=== PATIENT | male | born 1995 | race Asian ===

== ENCOUNTER 2022-01-02 10:20 | Emergency (ER) | payer OTHER, SELFPAY ==
[2022-01-02] VITALS (14 sets, daily range): BP systolic 100–146; BP diastolic 59–85; PULSE 58–84; RESP 15–26; TEMP 36.9; O2SAT 95–100; BMI 24.0
--- NOTE | 2022-01-02 10:30 | DI.RAD.S_ITS ---
PROCEDURE: XR CHEST 1V INDICATIONS: chest pain TECHNIQUE: One view of the chest was acquired. COMPARISON: None. FINDINGS: Surgical changes and devices: None. Lungs and pleura: Lungs are clear. No pleural effusions or pneumothorax. Mediastinum: Mediastinal contours appear normal. Heart size is normal. Bones and chest wall: No suspicious bony lesions. Overlying soft tissues appear unremarkable. IMPRESSION: No acute cardiopulmonary findings. Dictated by: Mariam Joseph M.D. on 01/02/2022 at 11:05 Approved by: Mariam Joseph M.D. on 01/02/2022 at 11:05
--- NOTE | 2022-01-02 11:28 | ED.SYNCOPE ---
HPI - Syncope General Chief Complaint: Syncope Stated Complaint: Syncope- sent by otto [facility] Time Seen by Provider: 01/02/22 10:33 Source: patient Mode of arrival: Ambulatory Limitations: no limitations History of Present Illness HPI narrative: Patient is a 26-year-old healthy male who presents if after syncopal episode. This is actually his 2nd syncopal episode the 1st 1 was December 06. He does not remember exactly what happened that time but this morning he was getting ready for work brushing his teeth when to put on his boots when he felt really lightheaded. Stood up and steady himself on the bed. And passed out. No chest pain or palpitations. Although he is complaining of some chest heaviness he says it has been there for a long time. He is able to run without any difficulty. Does not know any significant shortness of breath with exertion. He has not had any fever chills or cough. He went to the walk-in clinic. EKG there face thought was concerning for possible Brugada syndrome type 2 and at here for further evaluation. Related Data Allergies Allergy/AdvReac Type Severity Reaction Status Date / Time No Known Drug Allergies Allergy Verified 01/02/22 10:30 Review of Systems Review of Systems Narrative: GENERAL: Denies chills, fatigue, malaise, fever, sweats, travel HEENT: Denies sinus pain, ear pain, sore throat, difficulty swallowing, neck pain RESPIRATORY: Denies dyspnea, cough, wheezing, hemoptysis, sputum. CARDIOVASCULAR: See HPI GASTROINTESTINAL: Denies nausea, vomiting, abdominal pain, diarrhea, constipation, melena. : Denies dysuria, frequency, incontinence, hematuria, urinary retention, flank pain. MUSCULOSKELETAL: Denies weakness, joint pain, or bony pain SKIN: No rash, no erythema, no pruritus NEUROLOGIC: + syncope, see HPI PSYCHIATRIC: No concerning psychosocial issues. 12 point review of systems is negative except for those stated above and HPI Patient History Social History Smoking Status: Unknown if ever smoked Smoking Status: Unknown if ever smoked alcohol intake frequency: holidays/special occasions only Substance Use Type: does not use Exam Initial Vital Signs Initial Vital Signs: Vital Signs Temperature 98.5 F 01/02/22 10:25 Pulse Rate 75 01/02/22 10:25 Respiratory Rate 17 01/02/22 10:25 Blood Pressure 143/85 H 01/02/22 10:25 Pulse Oximetry 99 01/02/22 10:25 GENERAL: Alert well-appearing 26-year-old male and in no acute distress. HEENT: Head atraumatic,EOMI, pupils reactive, face symmetric, moist mucous membranes CARDIOVASCULAR: Regular rate and rhythm without murmurs, rubs or gallops. RESPIRATORY: Breath sounds equal bilaterally, no wheezes rales or rhonchi. ABDOMEN: Soft, nontender. Normoactive bowel sounds all 4 quadrants. No guarding or rebound. EXTREMITIES: Normal range of motion, no clubbing or edema. Neurovascularly intact NEUROLOGICAL: Alert and oriented x4.Normal gait and speech. SKIN: Warm, dry, no laceration, no petechiae, no rashes or lesions. Course Orders Ordered: ED Orders 01/02/22 10:30 XR chest 1V Stat EKG-12 Lead Stat 01/02/22 11:17 BNP [NT-proBNP (BNP-Adult 18+)] Stat Complete Blood Count AUTO DIFF Stat Comprehensive Metabolic Panel Stat D Dimer Stat Lipase Stat Magnesium Stat Partial Thromboplastin Time Stat Prothrombin Time INR Stat Troponin & CK Cardiac Panel Stat Discontinued Medications Sodium Chloride (Normal Saline 0.9%) 1,000 mls @ 1,000 mls/hr IV BOLUS ONE Stop: 01/02/22 13:04 Last Infusion: 01/02/22 14:09 Dose: 0 mls/hr Documented by: Admin: 01/02/22 12:30 Dose: 1,000 mls/hr Documented by: SANDIP Vital Signs Vital signs: Vital Signs - 8 hr 01/02/22 10:25 01/02/22 10:26 01/02/22 10:28 Temperature 98.5 F Pulse Rate 75 84 75 Pulse Rate [Orthostatic Lying] Pulse Rate [Orthostatic Sitting] Pulse Rate [Orthostatic Standing] Respiratory Rate 17 26 H Blood Pressure 143/85 H 143/85 H Blood Pressure [Orthostatic Lying] Blood Pressure [Orthostatic Sitting] Blood Pressure [Orthostatic Standing] Pulse Oximetry 99 100 01/02/22 10:30 01/02/22 11:00 01/02/22 11:30 Temperature Pulse Rate 72 69 68 Pulse Rate [Orthostatic Lying] Pulse Rate [Orthostatic Sitting] Pulse Rate [Orthostatic Standing] Respiratory Rate 19 15 19 Blood Pressure 146/70 H 128/78 125/78 Blood Pressure [Orthostatic Lying] Blood Pressure [Orthostatic Sitting] Blood Pressure [Orthostatic Standing] Pulse Oximetry 99 100 95 01/02/22 12:00 01/02/22 12:26 01/02/22 12:30 Temperature Pulse Rate 58 L 72 67 Pulse Rate [Orthostatic Lying] Pulse Rate [Orthostatic Sitting] Pulse Rate [Orthostatic Standing] Respiratory Rate 15 23 18 Blood Pressure 110/66 100/59 L 128/79 Blood Pressure [Orthostatic Lying] Blood Pressure [Orthostatic Sitting] Blood Pressure [Orthostatic Standing] Pulse Oximetry 100 100 100 01/02/22 12:35 01/02/22 12:37 01/02/22 12:38 Temperature Pulse Rate 83 82 83 Pulse Rate [Orthostatic Lying] Pulse Rate [Orthostatic Sitting] Pulse Rate [Orthostatic Standing] Respiratory Rate 18 19 18 Blood Pressure 115/79 117/79 118/78 Blood Pressure [Orthostatic Lying] Blood Pressure [Orthostatic Sitting] Blood Pressure [Orthostatic Standing] Pulse Oximetry 100 100 100 01/02/22 12:47 01/02/22 13:00 Temperature Pulse Rate 60 Pulse Rate [Orthostatic Lying] 64 Pulse Rate [Orthostatic Sitting] 68 Pulse Rate [Orthostatic Standing] 82 Respiratory Rate 15 Blood Pressure Blood Pressure [Orthostatic Lying] 100/59 L Blood Pressure [Orthostatic Sitting] 128/79 Blood Pressure [Orthostatic Standing] 116/79 Pulse Oximetry 100 MDM - Syncope Lab Data Result diagrams: 01/02/22 11:17 01/02/22 11:17 Labs: Lab Results 01/02/22 01/02/22 01/02/22 Range/Units 11:17 11:17 11:17 WBC 6.9 (4.5-11.0) X10^3/uL RBC 5.03 (4.5-5.9) X10^6/uL Hgb 15.5 (13.5-17.5) g/dL Hct 45.2 (41-53) % MCV 90.0 (80-100) fL MCH 30.8 (26-34) PG MCHC 34.3 (30-36) % RDW 13.1 (11.6-14.8) % Plt Count 176 (150-400) X10^3/uL Neut % (Auto) 80.2 H (50-75) % Lymph % (Auto) 14.8 L (25-40) % [place] % (Auto) 4.8 (3-14) % Eos % (Auto) 0.1 L (2-4) % Baso % (Auto) 0.1 (0-2) % Neut # (Auto) 5500 (5562-6572) /uL Lymph # (Auto) 1000 L (1365-9366) /uL [place] # (Auto) 300 (0-900) /uL Eos # (Auto) 0 (0-450) /uL Baso # (Auto) 0 (0-100) /uL PT 12.0 (10.1-12.7) SECONDS INR 1.1 (0.9-1.3) APTT 34 (26.4-36.2) SECONDS D-Dimer (<230) ng/mL Sodium 139 (137-145) mmol/L Potassium 4.1 (3.4-5.1) mmol/L Chloride 106 (98-107) mmol/L Carbon Dioxide 32 (22-32) mmol/L BUN 14 (9-20) mg/dL Creatinine 0.85 (0.66-1.25) mg/dL Estimated GFR > 60 (>60) mL/min BUN/Creatinine Ratio 16.5 (6-22) Glucose 97 (70-100) mg/dL Calcium 9.2 (8.4-10.2) mg/dL Magnesium 2.2 (1.6-2.3) mg/dL Total Bilirubin 0.8 (0.2-1.3) mg/dL AST 32 (17-59) IU/L ALT 21 (<50) IU/L Alkaline Phosphatase 63 (38-126) U/L Total Creatine Kinase 505 H (55-170) U/L CK-MB (CK-2) 3.00 H (<2.37) ng/mL CK-MB (CK-2) Rel Index 0.6 L (1.5-5.0) % Troponin I < 0.012 (0.01-0.034) ng/mL NT-Pro-B Natriuret Pep (<125) pg/mL Total Protein 7.7 (6.3-8.2) g/dL Albumin 4.4 (3.5-5.0) g/dL Globulin 3.3 (1.7-4.1) g/dL Albumin/Globulin Ratio 1.3 (1.0-2.8) Lipase 72 (23-300) U/L 01/02/22 01/02/22 Range/Units 11:17 11:17 WBC (4.5-11.0) X10^3/uL RBC (4.5-5.9) X10^6/uL Hgb (13.5-17.5) g/dL Hct (41-53) % MCV (80-100) fL MCH (26-34) PG MCHC (30-36) % RDW (11.6-14.8) % Plt Count (150-400) X10^3/uL Neut % (Auto) (50-75) % Lymph % (Auto) (25-40) % [place] % (Auto) (3-14) % Eos % (Auto) (2-4) % Baso % (Auto) (0-2) % Neut # (Auto) (8390-2583) /uL Lymph # (Auto) (3698-3844) /uL [place] # (Auto) (0-900) /uL Eos # (Auto) (0-450) /uL Baso # (Auto) (0-100) /uL PT (10.1-12.7) SECONDS INR (0.9-1.3) APTT (26.4-36.2) SECONDS D-Dimer < 200 (<230) ng/mL Sodium (137-145) mmol/L Potassium (3.4-5.1) mmol/L Chloride (98-107) mmol/L Carbon Dioxide (22-32) mmol/L BUN (9-20) mg/dL Creatinine (0.66-1.25) mg/dL Estimated GFR (>60) mL/min BUN/Creatinine Ratio (6-22) Glucose (70-100) mg/dL Calcium (8.4-10.2) mg/dL Magnesium (1.6-2.3) mg/dL Total Bilirubin (0.2-1.3) mg/dL AST (17-59) IU/L ALT (<50) IU/L Alkaline Phosphatase (38-126) U/L Total Creatine Kinase (55-170) U/L CK-MB (CK-2) (<2.37) ng/mL CK-MB (CK-2) Rel Index (1.5-5.0) % Troponin I (0.01-0.034) ng/mL NT-Pro-B Natriuret Pep 59 (<125) pg/mL Total Protein (6.3-8.2) g/dL Albumin (3.5-5.0) g/dL Globulin (1.7-4.1) g/dL Albumin/Globulin Ratio (1.0-2.8) Lipase (23-300) U/L Urine Dip Bedside Urine Glucose Negative Bedside Urine Bilirubin - Negative Bedside Urine Ketone - Negative Urine Specific [place] 1.010 Bedside Urine Occult Blood - Negative Bedside Urine pH 6.5 Bedside Urine Protein - Negative Bedside Urine Urobilinogen 0.2 Bedside Urine Nitrite - Negative Bedside Urine Leukocytes - Negative Esterase Imaging Data Chest x-ray: Radiologist's Impression: nt: John Solo V MR#: [id number] : 1995 Acct:[id number] Age/Sex: 26 / M Date of Service: 01/02/22 Loc: ED Accession Number: [id number] ?? Procedure: XR chest 1V Ordering Provider: Xin Hollins D.O. PROCEDURE:? XR CHEST 1V ? INDICATIONS:? chest pain ? TECHNIQUE:? One view of the chest was acquired.? ? COMPARISON:? None. ? FINDINGS:? ? Surgical changes and devices:? None.? ? Lungs and pleura:? Lungs are clear.? No pleural effusions or pneumothorax.? ? Mediastinum:? Mediastinal contours appear normal.? Heart size is normal.? ? Bones and chest wall:? No suspicious bony lesions.? Overlying soft tissues appear unremarkable.? ? IMPRESSION:? No acute cardiopulmonary findings. ? ? Dictated by: Mariam Joseph M.D. on 01/02/2022 at 11:05 ? ? ECG Data Interpretation: Normal sinus rhythm rate 72 DC interval 166 QRS 98 QTC 424 complete right bundle-branch block noted does not appear to be brugada appears more to be early repolarization MDM Narrative Medical decision making narrative: The patient presents after 2 syncopal episodes. That was concern for possible abnormal EKG however appears to be more early repolarization. Dr. Torres, the cardiology has been updated patient's symptoms and test results agrees not classic brugada can follow up as outpatient Patient has a negative D-dimer and blood work is overall reassuring. Unlikely to be PE causing syncope. He is given fluids. Orthostatics are negative. The patient overall feeling better. Recommend outpatient follow-up possible Cardiology consult. Discharge Plan Departure Patient Disposition: Home Clinical Impression: Vasovagal syncope Instructions: DI for Syncope in Adults (Fainting) Activity Restrictions/Additional Instructions: *You have been diagnosed with fainting episode *What to do: You are found to have early repolarization on your EKG, it does not cause passing out. You may need further workup. Please be sure to drink enough fluid *Continue to take medications as directed *Follow up with your primary care provider in 2-3 days or call [phone] Garcia, with Cardiology for further workup. *Return to ER if you should have recurrent episode of passing out, worsening chest pain or palpitations or any new, worsening or concerning symptoms Referrals: Leonard Garcia MD [Physician] -
[2022-01-02 11:37] LABS: Add Manual Diff / Slide Review NO; Basophils Absolute Auto 0 /uL (0-100); Basophils Percent Auto 0.1 % (0-2); Eosinophils Absolute Auto 0 /uL (0-450); Eosinophils Percent Auto 0.1 % (2-4); Hematocrit 45.2 % (41-53); Hemoglobin 15.5 g/dL (13.5-17.5); Lymphocytes Absolute Auto 1000 /uL (1100-4500); Lymphocytes Percent Auto 14.8 % (25-40); Mean Corpuscular HGB Conc 34.3 % (30-36); Mean Corpuscular Hemoglobin 30.8 PG (26-34); Monocytes Absolute Auto 300 /uL (0-900); Monocytes Percent Auto 4.8 % (3-14); Neutrophils Absolute Auto 5500 /uL (1500-7000); Neutrophils Percent Auto 80.2 % (50-75); Platelet Count 176 X10^3/uL (150-400); Red Blood Cell Count 5.03 X10^6/uL (4.5-5.9); Red Cell Distribution Width 13.1 % (11.6-14.8); White Blood Cell Count 6.9 X10^3/uL (4.5-11.0)
[2022-01-02 11:44] LABS: INR 1.1 (0.9-1.3)
[2022-01-02 11:47] LABS: PTT Partial Thromboplastin Tim 34 SECONDS (26.4-36.2)
[2022-01-02 11:49] LABS: Alanine Aminotransferase 21 IU/L (<50); Albumin 4.4 g/dL (3.5-5.0); Albumin Globulin Ratio 1.3 (1.0-2.8); Alkaline Phosphatase 63 U/L (38-126); Aspartate Aminotransferase 32 IU/L (17-59); BUN Creatinine Ratio 16.5 (6-22); Bilirubin Total 0.8 mg/dL (0.2-1.3); Blood Urea Nitrogen 14 mg/dL (9-20); Calcium 9.2 mg/dL (8.4-10.2); Carbon Dioxide 32 mmol/L (22-32); Chloride 106 mmol/L (98-107); Creatine Kinase 505 U/L (55-170); Estimated Glomerular Filt Rate > 60 mL/min (>60); Globulin 3.3 g/dL (1.7-4.1); Glucose 97 mg/dL (70-100); HEMOLYSIS < 15 (0-50); Lipase 72 U/L (23-300); Magnesium 2.2 mg/dL (1.6-2.3); Potassium 4.1 mmol/L (3.4-5.1); Sodium 139 mmol/L (137-145); Total Protein 7.7 g/dL (6.3-8.2)
[2022-01-02 11:57] LABS: D Dimer < 200 ng/mL (<230)
[2022-01-02 11:58] LABS: NT-proBNP (BNP-Adult 18+) 59 pg/mL (<125)
[2022-01-02 12:01] LABS: Troponin I < 0.012 ng/mL (0.01-0.034)
[2022-01-02 12:04] LABS: CKMB % Relative Index 0.6 % (1.5-5.0)
[2022-01-02] MEDS: SODIUM CHLORIDE 0.9% 1,000 ML 1000 ML IV (12:30)
== END 2022-01-02 14:19 | disposition home or self-care (01) ==
PROVIDERS: Emergency Provider Emergency Medicine
DX: R55 Syncope and collapse (principal); R07.9 Chest pain, unspecified
CPT/HCPCS: 36415; 71045; 80053; 81003; 82550; 82553; 83690; 83735; 83880; 84484; 85025; 85379; 85610; 85730; 93005; 93010; 99284

== ENCOUNTER 2022-03-02 19:51 | Emergency (ER) | payer OTHER, SELFPAY ==
[2022-03-02 20:22] VITALS: BP 136/70; PULSE 72; RESP 16; TEMP 36.4; O2SAT 99; BMI 25.0
[2022-03-02 21:39] VITALS: O2SAT 100
[2022-03-02 21:41] VITALS: BP 130/58; PULSE 66; O2SAT 99
--- NOTE | 2022-03-02 22:21 | ED_ITS ---
HPI - Recheck/Abnormal Lab/Rx General Chief Complaint: Recheck/Abnormal Lab/Rx Stated Complaint: muscle jerks all over body Time Seen by Provider: 03/02/22 21:44 Source: patient Mode of arrival: Ambulatory Limitations: no limitations History of Present Illness HPI narrative: Patient is a 26-year-old male. Was seen in the walk-in clinic today for evaluation of what he states is 2 separate episodes of muscle jerking. The 1st episode when he was getting dressed in the morning. He states that his whole body started jerking but lasted for very short period of time. Second episode happened later in the day when he was undressing. Same symptoms occurring again. Went to an outside urgent care. Had labs drawn. Was called and told that his CK was elevated and that he was in rhabdo and that he needed to come to the emergency department for fluids. He currently expresses no symptoms. Related Data Allergies Allergy/AdvReac Type Severity Reaction Status Date / Time No Known Drug Allergies Allergy Verified 01/02/22 10:30 Review of Systems Cardiovascular Cardiovascular: Reports system reviewed and no additional complaints, except as documented Respiratory Respiratory: Reports system reviewed and no additional complaints, except as documented Musculoskeletal Musculoskeletal: Reports system reviewed and no additional complaints, except as documented Neurologic Neurologic: Reports system reviewed and no additional complaints, except as documented Hematologic/Lymphatic On Anticoagulants: No Patient History Medical History Healthy adult Social History Smoking Status: Unknown if ever smoked Smoking Status: Unknown if ever smoked alcohol intake frequency: holidays/special occasions only Substance Use Type: does not use Exam Initial Vital Signs Initial Vital Signs: Vital Signs Temperature 97.5 F L 03/02/22 20:22 Pulse Rate 72 03/02/22 20:22 Respiratory Rate 16 03/02/22 20:22 Blood Pressure 136/70 03/02/22 20:22 Pulse Oximetry 99 03/02/22 20:22 Oxygen Delivery Method 03/02/22 20:22 HENMT Head: normal to inspection and normocephalic Resp Effort & Inspection: normal respiratory effort Auscultation: clear to auscultation bilaterally Cardio Rate: regular rate Rhythm: regular rhythm Skin General: no rashes or lesions noted Neuro General: patient alert, patient awake, patient oriented x3 and moves all extremities Extrem General: normal to inspection and capillary refill normal Psych Appearance: grossly normal and well kempt Course Orders Ordered: ED Orders 03/02/22 22:30 Basic Metabolic Panel Stat CK [Creatine Kinase] Stat Complete Blood Count AUTO DIFF Stat Discontinued Medications Sodium Chloride (Normal Saline 0.9%) 1,000 mls @ 1,000 mls/hr IV BOLUS ONE Stop: 03/02/22 23:20 Last Infusion: 03/02/22 23:26 Dose: 0 mls/hr Documented By: Admin: 03/02/22 22:37 Dose: 1,000 mls/hr Documented By: GUIDO Vital Signs Vital signs: Vital Signs - 8 hr 03/02/22 20:22 03/02/22 21:39 03/02/22 21:41 Temperature 97.5 F L Pulse Rate 72 66 Respiratory Rate 16 Blood Pressure 136/70 Pulse Oximetry 99 100 99 Oxygen Delivery Method Room Air 03/02/22 21:41 03/02/22 23:25 03/02/22 23:25 Temperature Pulse Rate 57 L Respiratory Rate Blood Pressure 130/58 L 123/69 Pulse Oximetry 100 Oxygen Delivery Method MDM - Recheck/Abnormal Lab/Rx Lab Data Attestation: I reviewed the patient's lab results. Result diagrams: 03/02/22 22:30 03/02/22 22:30 Labs: Lab Results 03/02/22 03/02/22 03/02/22 Range/Units 22:30 22:30 22:30 WBC 7.7 (4.5-11.0) X10^3/uL RBC 4.91 (4.5-5.9) X10^6/uL Hgb 15.2 (13.5-17.5) g/dL Hct 44.0 (41-53) % MCV 89.5 (80-100) fL MCH 31.0 (26-34) PG MCHC 34.7 (30-36) % RDW 13.2 (11.6-14.8) % Plt Count 172 (150-400) X10^3/uL Neut % (Auto) 67.5 (50-75) % Lymph % (Auto) 24.0 L (25-40) % [place] % (Auto) 7.6 (3-14) % Eos % (Auto) 0.6 L (2-4) % Baso % (Auto) 0.3 (0-2) % Neut # (Auto) 5200 (4408-0290) /uL Lymph # (Auto) 1900 (4910-0809) /uL [place] # (Auto) 600 (0-900) /uL Eos # (Auto) 0 (0-450) /uL Baso # (Auto) 0 (0-100) /uL Sodium 136 L (137-145) mmol/L Potassium 3.6 (3.4-5.1) mmol/L Chloride 103 (98-107) mmol/L Carbon Dioxide 23 (22-32) mmol/L BUN 10 (9-20) mg/dL Creatinine 0.76 (0.66-1.25) mg/dL Estimated GFR > 60 (>60) mL/min BUN/Creatinine Ratio 13.2 (6-22) Glucose 97 (70-100) mg/dL Calcium 8.9 (8.4-10.2) mg/dL Total Creatine Kinase 2148 H (55-170) U/L MDM Narrative Medical decision making narrative: Patient's CK is elevated today but he is not having any other specific symptoms of rhabdo. His kidney function is unremarkable. Unsure about the origin of his shaking episodes. He has had issues with syncope in the past. His symptoms are not consistent with tonic-clonic seizures and this seemed to be more generalized than what I would expect for focal seizures. Informed him that he needed to contact his primary doctor for follow-up to discuss further workup. He was instructed to drink plenty of fluids. Was given return precautions. He expressed understanding and agreement. Discharge Plan Departure Patient Disposition: Home Clinical Impression: Elevated CK Activity Restrictions/Additional Instructions: I do recommend that for the next couple days you stay hydrated. Continue all of your medications as directed. On Saturday contact your medical department for follow-up. Return to the emergency department for any new or worsening symptoms. Visit Report Forms: Patient Portal/API
[2022-03-02] MEDS: SODIUM CHLORIDE 0.9% 1,000 ML 1000 ML IV (22:37)
[2022-03-02 22:41] LABS: Add Manual Diff / Slide Review NO; Basophils Absolute Auto 0 /uL (0-100); Basophils Percent Auto 0.3 % (0-2); Eosinophils Absolute Auto 0 /uL (0-450); Eosinophils Percent Auto 0.6 % (2-4); Hemoglobin 15.2 g/dL (13.5-17.5); Lymphocytes Absolute Auto 1900 /uL (1100-4500); Mean Corpuscular HGB Conc 34.7 % (30-36); Mean Corpuscular Volume 89.5 fL (80-100); Monocytes Absolute Auto 600 /uL (0-900); Monocytes Percent Auto 7.6 % (3-14); Neutrophils Absolute Auto 5200 /uL (1500-7000); Neutrophils Percent Auto 67.5 % (50-75); Platelet Count 172 X10^3/uL (150-400); Red Blood Cell Count 4.91 X10^6/uL (4.5-5.9); Red Cell Distribution Width 13.2 % (11.6-14.8); White Blood Cell Count 7.7 X10^3/uL (4.5-11.0)
[2022-03-02 22:59] LABS: BUN Creatinine Ratio 13.2 (6-22); Blood Urea Nitrogen 10 mg/dL (9-20); Calcium 8.9 mg/dL (8.4-10.2); Carbon Dioxide 23 mmol/L (22-32); Chloride 103 mmol/L (98-107); Estimated Glomerular Filt Rate > 60 mL/min (>60); Glucose 97 mg/dL (70-100); HEMOLYSIS < 15 (0-50); Potassium 3.6 mmol/L (3.4-5.1); Sodium 136 mmol/L (137-145)
[2022-03-02 23:04] LABS: Creatine Kinase 2148 U/L (55-170)
[2022-03-02 23:25] VITALS: BP 123/69; PULSE 57; O2SAT 100
== END 2022-03-02 23:51 | disposition home or self-care (01) ==
PROVIDERS: Emergency Provider Emergency Medicine
DX: R74.8 Abnormal levels of other serum enzymes (principal)
CPT/HCPCS: 36415; 80048; 82550; 85025; 96360; 99284